=== PATIENT | male | born 1940 | race Caucasian/White ===

== ENCOUNTER → 2016-07-02 | Day surgery (SDC) | payer MEDICARE ==
[~2016-07-02] MED LIST: LACTATED RINGER'S 1,000 ML BAG IV ONE; MIDAZOLAM HCL 2 MG/2 ML VIAL ONE; ONDANSETRON HCL 4 MG/2 ML VIAL IV PUSH ONE; PROPOFOL 100 MG/10 ML INJ IV ONE; TRIAMCINOLONE ACETONIDE 40 MG/ML VIAL ONE; ceFAZolin INJ 1,000 MG VIAL ONE
--- NOTE | 2016-07-02 16:38 | TN ---
cc: GAVIOTA LACY M.D. DATE OF SURGERY: 07/02/2016 PREOPERATIVE DIAGNOSIS Left knee internal derangement POSTOPERATIVE DIAGNOSIS Left knee medial, lateral meniscus tear, mild to moderate, chondromalacia patella. PROCEDURE: Left knee arthroscopic surgery, subtotal medial and lateral meniscectomy. SURGEON Donna Lacy MD PHARMACY SALESPERSON Staff SPECIMEN None. ESTIMATED BLOOD LOSS: None. COMPLICATIONS: None. ANESTHESIA: General, LMA. Dr. Bhavana Choi. DRAINS: None. TOURNIQUET TIME: 15-minute, 200 mmHg. CONDITION: Stable. PLAN OF ACTIVITY: Per orders. DESCRIPTION OF PROCEDURE: The patient was brought to the operating room and had satisfactory general anesthesia by Dr. Choi, Department of Anesthesia. The left lower extremity was prepped and draped in the usual sterile fashion. The extremity was exsanguinated with Himanshu wrap. Tourniquet inflated to 200 mmHg. Routine anterolateral, anterior medial portal was made. Introduction of the arthroscopic instrument was performed. The knee was inflated with sterile Ringer's lactate solution. Inspection of the patellofemoral compartment showed no evidence of loose bodies. 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 On the lateral compartment, the patient was found to have normal articular surfaces. Lateral meniscus had a degenerative tear laterally. The anterior cruciate ligament was found to be intact, no evidence of recent remote injury. The medial compartment showed the patient to have mild chondromalacia of the femur and a complex tear involving the posterior medial meniscus. Subtotal meniscectomy performed of the medial meniscus using multiple different types of rongeurs, meniscal rongeurs and evangelina. Subtotal lateral meniscectomy performed with meniscal rongeurs and shaver. The knee was irrigated with copious amounts of Ringer's lactate solution. The wound itself was dry. Arthroscopic instruments were removed. The knee was injected with 1 cc of Kenalog 40. Tourniquet deflated. Incisions were closed with 3-0 nylon. Sterile dressing applied. The patient tolerated the procedure well and arrived in the Recovery Room in stable and satisfactory condition. MD HSAYNE Harper/CLAUDINE /4:01 PM /4:12 PM
== END | disposition home or self-care (01) ==
LOC: ESDC 12:47
PROVIDERS: ATTEND Orthopaedic Surgery Orthopaedic Surgery of the Spine
DX: S83.282A Other tear of lateral meniscus, current injury, left knee, initial encounter (principal); S83.232A Complex tear of medial meniscus, current injury, left knee, initial encounter; M22.42 Chondromalacia patellae, left knee
CPT/HCPCS: 01400; 29880; J0690; J2250; J2405; J3010; J3301; J7120